=== PATIENT | female | born 2000 | race Caucasian/White ===

== ENCOUNTER 2020-12-14 15:14 | Emergency (ER) | payer SELFPAY ==
[~2020-12-14] VITALS: Ht 157.5 cm; Wt 66.0 kg
[2020-12-14] MEDS ORDERED: LIDOCAINE 2% VISCOUS 15 ML UDC PO ONE (16:00)
--- NOTE | 2020-12-14 16:01 | ED EENT ---
History of Present Illness General Chief Complaint: Dental Problems/Pain Stated Complaint: TOOTH ABCESS/PAIN Nursing Triage Note: PT AMB TO ED BY POV WITH C/O DENTAL PAIN IN HER BACK TOOTH ON THE UPPER RIGHT. PT STATES SHE SAW DENTIST AT [facility] THIS MORNING, THEY PRESCRIBED HER CLINDAMYCIN AND ARE GOING TO PULL THE TOOTH Dec. PT MOM STATES THEY DID NOT PRESCRIBE HER ANYTHING FOR PAIN AND SHE RATES PAIN 10/10 AT THIS TIME. PT HAS NOT TAKEN ANY OTC MEDS FOR PAIN. Source: patient, mother Exam Limitations: no limitations History of Present Illness Date Seen by Provider: Dec 14, 2020 Time Seen by Provider: 15:37 Initial Comments Patient to the ER by private conveyance with mom chief complaint that she has had 2 days of swelling pain associated with the posterior right upper molar. No drainage or discharge. No fevers or chills nausea or difficulty swallowing. She went and saw the dentist at [facility] and they put her on clindamycin. She has taken 2 doses and still having significant pain. She is using Orajel, Tylenol 650 mg. Last menstrual period 1 month ago. Not on control. Denies sexual activity Allergies and Home Medications Allergies Coded Allergies: Amoxicillin (Unverified Allergy, Mild, 07/01/08) Potassium Clavulanate (Unverified Allergy, Mild, 07/01/08) Patient Home Medication List Home Medication List Reviewed: Yes Review of Systems Review of Systems Constitutional: No chills, No fever, No malaise Eyes: Denies Blindness, Denies Blurred Vision Ears: Denies Dizziness, Denies Pain Nose: denies clots, denies congestion Mouth: denies clots, denies pain, denies swelling Throat: denies pain, denies swelling Respiratory: No cough, No phlegm, No short of breath Cardiovascular: No chest pain, No edema All Other Systems Reviewed Negative Unless Noted: Yes Past [id number] Hx Patient Social History Tobacco Use?: No Use of E-Cig and/or Vaping dev: No Substance use?: No Alcohol Use?: No Pt feels they are or have been: No Immunizations Up To Date Influenza Vaccine Up-to-Date: No; Not Current First/Initial COVID19 Vaccinat: MAR 2020 Second COVID19 Vaccination Hakeem: APR 2020 COVID19 Vaccine Professor Of History: MAGEN Physical Exam Vital Signs Vital Signs - First Documented 12/14/20 15:28 Temp 36.8 Pulse 76 Resp 18 B/P (MAP) 117/73 (88) Pulse Ox 100 O2 Delivery Room Air Height, Weight, BMI Height: '" Weight: lbs. oz. kg; 26.00 BMI Method: General Appearance: WD/WN, mild distress Eyes: bilateral eye normal inspection, bilateral eye PERRL, bilateral eye EOMI Ears: bilateral ear auricle normal, bilateral ear canal normal, bilateral ear TM normal Nose: normal inspection, discharge Mouth/Throat: normal mouth inspection, other (Significant cavities associated with the posterior right upper molar without significant swelling pointing or exudate) Neck: non-tender, full range of motion, supple, normal inspection Cardiovascular: normal peripheral pulses, regular rate, rhythm Respiratory: no respiratory distress, no accessory muscle use Progress/Results/Core Measures Results/Orders Vital Signs/I&O 12/14/20 15:28 Temp 36.8 Pulse 76 Resp 18 B/P (MAP) 117/73 (88) Pulse Ox 100 O2 Delivery Room Air Blood Pressure Mean: 88 Progress Progress Note : Time: 16:01 Progress Note Viscous lidocaine. Patient declined an injection of lidocaine. We have counseled her that she should expect a more slow recovery over her pain with antibiotics over the next several days. Encourage appropriate doses of Tylenol, Motrin or naproxen and heat Departure Impression Primary Impression: Dental abscess Disposition: 01 HOME, SELF-CARE Condition: Stable Departure-Patient Inst. Decision time for Depature: 16:04 Referrals: [facility] (PCP/Family) Primary Care Physician Patient Instructions: Dental Pain (DC) Add. Discharge Instructions: Warm moist heat applied over your cheek. Drink plenty of fluids. Tylenol 1000 mg every 8 hours as necessary for pain. Ibuprofen 800 mg every 8 hours as necessary for pain or naproxen 1 tablet every 6 hours as necessary for pain. Viscous lidocaine 5 cc applied to gauze directly over the tooth and keep it in place for half an hour to 1 hour. Do not eat or drink after that. You may do this every 6 hours until the Viscous Lidocaine runs out. After the viscous lidocaine runs out you may continue to use topical gel such as Orajel. Expect improvement in your pain over 2 to 3 days on antibiotics and resolution of pain over a week. All discharge instructions reviewed with patient and/or family. Voiced understanding. LOIS HALLMAN Dec 14, 2020 16:01
[2020-12-14 16:27] VITALS: BP 116/76
[2020-12-14] MEDS ORDERED: LIDOCAINE 2% VISCOUS 15 ML UDC ONE (16:34)
== END 2020-12-14 16:25 | disposition home or self-care (01) ==
LOC: EDUNIT# 15:14 → ER 15:17
DX: K04.7 Periapical abscess without sinus (principal)
CPT/HCPCS: 99283